=== PATIENT | male | born 1975 | race Caucasian/White ===

== ENCOUNTER 2023-03-06 14:07 | Inpatient (IN) | payer OTHER ==
[2023-03-06 14:43] VITALS: BMI 22.5
[2023-03-06] MEDS ORDERED: IBUPROFEN 400 MG TABLET (FP) PO PRN (17:52)
[2023-03-06] MEDS ORDERED: BISMUTH SUBSALICYLATE 524 MG/30 ML PO PRN (17:52)
[2023-03-06] MEDS ORDERED: cloNIDine HCL 0.1 MG TABLET PO PRN (17:52)
[2023-03-06] MEDS ORDERED: NALOXONE HCL 0.4 MG/ML VIAL IM PRN (17:52)
[2023-03-06] MEDS ORDERED: ACETAMINOPHEN 325 MG TABLET (FP) PO PRN (17:52)
[2023-03-06] MEDS ORDERED: guaiFENesin 600 MG TABLET.ER (FP) PO PRN (17:52)
[2023-03-06] MEDS ORDERED: IBUPROFEN 600 MG TABLET (FP) PO PRN (17:52)
[2023-03-06] MEDS ORDERED: NALOXONE HCL (KLOXXADO) 8 MG SPRAY NS PRN (17:52)
[2023-03-06] MEDS ORDERED: MAG HYDROX/AL HYDROX/SIMETH 30 ML UNIT-DOSE CUP PO PRN (17:52)
[2023-03-06] MEDS ORDERED: BENZONATATE 200 MG CAPSULE PO PRN (17:52)
[2023-03-06] MEDS ORDERED: DICYCLOMINE HCL 10 MG CAPSULE PO PRN (17:52)
[2023-03-06] MEDS ORDERED: NICOTINE POLACRILEX 2 MG GUM BUC PRN (17:52)
[2023-03-06] MEDS ORDERED: BENZOCAINE/MENTHOL (CHLORASEPTIC ) LOZENGE MM PRN (17:52)
[2023-03-06] MEDS ORDERED: MAGNESIUM HYDROX 2400MG/30ML ORAL SUSPENSION 30 ML CUP PO PRN (17:52)
[2023-03-06] MEDS ORDERED: POLYETHYLENE GLYCOL (HEALTHYLAX) 3350 17 GM PACKET PO PRN (17:52)
[2023-03-06] MEDS ORDERED: methaDONE HCL 10 MG TABLET (FOR DETOX USE ONLY) PO ONE (17:52)
[2023-03-06] MEDS ORDERED: P-EPHED 60MG/TRIPROLIDI 2.5MG TABLET PO PRN (18:10)
[2023-03-06] MEDS: METHOCARBAMOL 500 MG TABLET PO PRN (18:39)
[2023-03-06] MEDS: THIAMINE HCL 100 MG TABLET (FP) PO SCH (22:20)
[2023-03-06] MEDS: MELATONIN 5 MG TABLETS PO SCH (22:20)
[2023-03-07] MEDS: PRENATAL VITAMINS W/ FOLIC ACID TABLET (FP) PO SCH (10:06)
[2023-03-07] MEDS: METHOCARBAMOL 500 MG TABLET PO PRN ×2 (10:08→22:05)
[2023-03-07 11:11] LABS: HEMATOCRIT 42.8 % (35.4-49); HEMOGLOBIN 14.1 GM/dL (11.7-16.9); MCH 32.4 pg (25.7-33.7); MCHC 32.9 g/dl (32.0-35.9); MEAN CELL VOLUME 98.5 fl (80-96); MEAN PLT VOLUME 10.6 fl (7.5-11.1); PLATELET COUNT 158 10^3/uL (134-434); RBC 4.35 M/mm3 (4.00-5.60); RDW 13.3 % (11.9-15.9); WHITE BLOOD COUNT 6.9 K/mm3 (4.0-10.0)
[2023-03-07 11:16] LABS: POTASSIUM 4.4 mmol/L (3.5-5.1)
[2023-03-07 11:28] LABS: CALCIUM 8.3 mg/dL (8.5-10.1)
[2023-03-07 11:29] LABS: ALBUMIN 3.3 g/dl (3.4-5.0); BLOOD UREA NITROGEN 12.4 mg/dL (7-18)
[2023-03-07 11:32] LABS: CREATININE 0.9 mg/dL (0.55-1.3)
[2023-03-07 11:34] LABS: BILIRUBIN,TOTAL 0.7 mg/dL (0.2-1); TOT PROT 6.1 g/dl (6.4-8.2)
[2023-03-07] MEDS: BACITRACIN 0.9 GM PACKET TP SCH (14:46)
[2023-03-07] MEDS: THIAMINE HCL 100 MG TABLET (FP) PO SCH (22:05)
[2023-03-07] MEDS: MELATONIN 5 MG TABLETS PO SCH (22:05)
[2023-03-08] MEDS: BACITRACIN 0.9 GM PACKET TP SCH (09:52)
[2023-03-08] MEDS: PRENATAL VITAMINS W/ FOLIC ACID TABLET (FP) PO SCH (09:53)
[2023-03-08] MEDS ORDERED: methaDONE HCL 10 MG TABLET (FOR DETOX USE ONLY) PO ONE (10:00)
[2023-03-08] MEDS: CLINDAMYCIN HCL 150 MG CAPSULE (FP) PO SCH ×3 (10:45→22:32)
[2023-03-08] MEDS: THIAMINE HCL 100 MG TABLET (FP) PO SCH (22:32)
[2023-03-08] MEDS: MELATONIN 5 MG TABLETS PO SCH (22:33)
[2023-03-09] MEDS: CLINDAMYCIN HCL 150 MG CAPSULE (FP) PO SCH ×3 (06:07→22:08)
[2023-03-09] MEDS: BACITRACIN 0.9 GM PACKET TP SCH (10:17)
[2023-03-09] MEDS: PRENATAL VITAMINS W/ FOLIC ACID TABLET (FP) PO SCH (10:17)
[2023-03-09] MEDS: THIAMINE HCL 100 MG TABLET (FP) PO SCH (22:08)
[2023-03-09] MEDS: MELATONIN 5 MG TABLETS PO SCH (22:08)
[2023-03-10] MEDS: CLINDAMYCIN HCL 150 MG CAPSULE (FP) PO SCH ×3 (05:52→22:05)
[2023-03-10] MEDS ORDERED: methaDONE HCL 10 MG TABLET (FOR DETOX USE ONLY) PO ONE (10:00)
[2023-03-10] MEDS: PRENATAL VITAMINS W/ FOLIC ACID TABLET (FP) PO SCH (10:19)
[2023-03-10] MEDS: BACITRACIN 0.9 GM PACKET TP SCH (10:19)
[2023-03-10] MEDS: MELATONIN 5 MG TABLETS PO SCH (22:05)
[2023-03-10] MEDS: THIAMINE HCL 100 MG TABLET (FP) PO SCH (22:05)
[2023-03-11] MEDS: CLINDAMYCIN HCL 150 MG CAPSULE (FP) PO SCH (05:59)
[2023-03-11 09:05] VITALS: BP 126/83; PULSE 90; RESP 18; TEMP 97.3
[2023-03-11] MEDS: PRENATAL VITAMINS W/ FOLIC ACID TABLET (FP) PO SCH (09:47)
[2023-03-11] MEDS: BACITRACIN 0.9 GM PACKET TP SCH (09:48)
== END 2023-03-11 10:00 | disposition home or self-care (01) | DRG 773 ==
LOC: YASAS 14:07 → Y3N 18:05
PROVIDERS: ADMIT Allergy & Immunology; ATTEND Allergy & Immunology
PROC: HZ2ZZZZ Detoxification Services for Substance Abuse Treatment (ICD-10-PCS; principal; 2023-03-06)
DX: F11.23 Opioid dependence with withdrawal (principal); F14.20 Cocaine dependence, uncomplicated; F17.210 Nicotine dependence, cigarettes, uncomplicated; L02.211 Cutaneous abscess of abdominal wall; R74.8 Abnormal levels of other serum enzymes
CPT/HCPCS: 36415; 80053; 85027; 86780; 87635; 93005; 93010

== ENCOUNTER 2024-02-07 12:10 | Inpatient (IN) | payer OTHER ==
[2024-02-07 13:40] VITALS: BMI 25.3
[2024-02-07] MEDS ORDERED: BENZOCAINE/MENTHOL (CHLORASEPTIC ) LOZENGE MM PRN (14:02)
[2024-02-07] MEDS ORDERED: guaiFENesin 600 MG TABLET.ER (FP) PO PRN (14:02)
[2024-02-07] MEDS ORDERED: NALOXONE (NARCAN) HCL 4 MG/0.1 ML SPRAY NS PRN (14:02)
[2024-02-07] MEDS ORDERED: IBUPROFEN 400 MG TABLET (FP) PO PRN (14:02)
[2024-02-07] MEDS ORDERED: NICOTINE POLACRILEX 2 MG LOZENGE BC PRN (14:02)
[2024-02-07] MEDS ORDERED: LOPERAMIDE HCL 2 MG CAPSULE PO PRN (14:02)
[2024-02-07] MEDS ORDERED: POLYETHYLENE GLYCOL (HEALTHYLAX) 3350 17 GM PACKET PO PRN (14:02)
[2024-02-07] MEDS ORDERED: IBUPROFEN 600 MG TABLET (FP) PO PRN (14:02)
[2024-02-07] MEDS ORDERED: NALOXONE HCL 0.4 MG/ML VIAL IM PRN (14:02)
[2024-02-07] MEDS ORDERED: ACETAMINOPHEN 325 MG TABLET (FP) PO PRN (14:02)
[2024-02-07] MEDS ORDERED: DICYCLOMINE HCL 10 MG CAPSULE PO PRN (14:02)
[2024-02-07] MEDS ORDERED: BISMUTH SUBSALICYLATE 262 MG/15 ML BTL PO PRN (14:02)
[2024-02-07] MEDS ORDERED: BENZONATATE 200 MG CAPSULE PO PRN (14:02)
[2024-02-07] MEDS ORDERED: NICOTINE POLACRILEX 2 MG GUM BUC PRN (14:02)
[2024-02-07] MEDS ORDERED: MAGNESIUM HYDROX 2400MG/30ML ORAL SUSPENSION 30 ML CUP PO PRN (14:02)
[2024-02-07] MEDS ORDERED: P-EPHED 60MG/TRIPROLIDI 2.5MG TABLET PO PRN (14:02)
[2024-02-07] MEDS ORDERED: ONDANSETRON *ODT* 4 MG TABLET SL PRN (14:02)
[2024-02-07] MEDS: diazePAM 5 MG TABLET PO ONE ×2 (16:12→17:04)
[2024-02-07] MEDS ORDERED: diazePAM 5 MG TABLET ONE (17:02)
[2024-02-07] MEDS ORDERED: BUPRENORPHINE/NALOXONE 8 MG/2 MG FILM PACKET SL SCH (18:30)
[2024-02-07] MEDS: BUPRENORPHINE/NALOXONE 4 MG/1 MG FILM PACKET SL SCH (18:49)
[2024-02-07] MEDS: BUPRENORPHINE/NALOXONE 8 MG/2 MG FILM PACKET SL SCH (19:18)
[2024-02-07] MEDS: THIAMINE 100 MG TABLET PO SCH (22:35)
[2024-02-07] MEDS: METHOCARBAMOL 750 MG TAB PO PRN (22:36)
[2024-02-07] MEDS: MELATONIN 5 MG TABLETS PO SCH (22:36)
[2024-02-08] MEDS: MAG HYDROX/AL HYDROX/SIMETH 30 ML UNIT-DOSE CUP PO PRN (00:25)
[2024-02-08] MEDS: diphenhydrAMINE HCL 25 MG CAPSULE (FP) PO ONE (02:29)
[2024-02-08] MEDS: PRENATAL VITAMINS W/ FOLIC ACID TABLET (FP) PO SCH (09:52)
[2024-02-09] MEDS ORDERED: BUPRENORPHINE/NALOXONE 8 MG/2 MG FILM PACKET SL ONE (06:00)
[2024-02-09] MEDS ORDERED: BUPRENORPHINE/NALOXONE 8 MG/2 MG FILM PACKET SL SCH (06:00)
[2024-02-10 08:43] VITALS: BP 133/88; PULSE 78; RESP 18; TEMP 98.6
[2024-02-10] MEDS: BUPRENORPHINE/NALOXONE 8 MG/2 MG FILM PACKET SL SCH (10:20)
[2024-02-10 11:59] LABS: HEMATOCRIT 44.9 % (35.4-49); HEMOGLOBIN 15.4 GM/dL (11.7-16.9); MCH 32.5 pg (25.7-33.7); MCHC 34.2 g/dl (32.0-35.9); MEAN CELL VOLUME 95.2 fl (80-96); MEAN PLT VOLUME 9.9 fl (7.5-11.1); PLATELET COUNT 235 10^3/uL (134-434); RBC 4.72 M/mm3 (4.00-5.60); RDW 13.9 % (11.9-15.9); WHITE BLOOD COUNT 9.7 K/mm3 (4.0-10.0)
[2024-02-10 12:00] LABS: POTASSIUM 4.8 mmol/L (3.5-5.1)
[2024-02-10 12:10] LABS: CALCIUM 9.6 mg/dL (8.5-10.1)
[2024-02-10 12:11] LABS: ALBUMIN 4.3 g/dl (3.4-5.0); BLOOD UREA NITROGEN 14.2 mg/dL (7-18)
[2024-02-10 12:15] LABS: BILIRUBIN,TOTAL 0.8 mg/dL (0.2-1)
[2024-02-10 12:16] LABS: TOT PROT 7.8 g/dl (6.4-8.2)
== END 2024-02-10 11:35 | disposition other institution (70) | DRG 773 ==
LOC: YASAS 12:10 → Y6N 16:48
PROVIDERS: ADMIT Allergy & Immunology; ATTEND Surgery
PROC: HZ2ZZZZ Detoxification Services for Substance Abuse Treatment (ICD-10-PCS; principal; 2024-02-07)
DX: F11.23 Opioid dependence with withdrawal (principal); F12.20 Cannabis dependence, uncomplicated; F17.210 Nicotine dependence, cigarettes, uncomplicated
CPT/HCPCS: 36415; 80053; 80305; 80307; 85027; 86780; 93005; 93010

== ENCOUNTER 2025-01-25 13:04 | Inpatient (IN) | payer OTHER ==
[2025-01-25 13:38] VITALS: BMI 27.3
[2025-01-25] MEDS ORDERED: DICYCLOMINE HCL 10 MG CAPSULE PO PRN (14:26)
[2025-01-25] MEDS ORDERED: guaiFENesin 600 MG TABLET.ER (FP) PO PRN (14:26)
[2025-01-25] MEDS ORDERED: BENZOCAINE/MENTHOL (CHLORASEPTIC ) LOZENGE MM PRN (14:26)
[2025-01-25] MEDS ORDERED: LOPERAMIDE HCL 2 MG CAPSULE PO PRN (14:26)
[2025-01-25] MEDS ORDERED: NALOXONE (NARCAN) HCL 4 MG/0.1 ML SPRAY NS PRN (14:26)
[2025-01-25] MEDS ORDERED: hydrOXYzine PAMOATE 25 MG CAPSULE (FP) PO PRN (14:26)
[2025-01-25] MEDS ORDERED: BISMUTH SUBSALICYLATE 262 MG/15 ML BTL PO PRN (14:26)
[2025-01-25] MEDS ORDERED: ONDANSETRON *ODT* 4 MG TABLET SL PRN (14:26)
[2025-01-25] MEDS ORDERED: ACETAMINOPHEN 325 MG TABLET (FP) PO PRN (14:26)
[2025-01-25] MEDS ORDERED: IBUPROFEN 400 MG TABLET (FP) PO PRN (14:26)
[2025-01-25] MEDS ORDERED: MAGNESIUM HYDROX 2400MG/30ML ORAL SUSPENSION 30 ML CUP PO PRN (14:26)
[2025-01-25] MEDS ORDERED: POLYETHYLENE GLYCOL (HEALTHYLAX) 3350 17 GM PACKET PO PRN (14:26)
[2025-01-25] MEDS ORDERED: IBUPROFEN 600 MG TABLET (FP) PO PRN (14:26)
[2025-01-25] MEDS ORDERED: BENZONATATE 200 MG CAPSULE PO PRN (14:26)
[2025-01-25] MEDS ORDERED: METHOCARBAMOL 500 MG TABLET PO PRN (14:26)
[2025-01-25] MEDS: NICOTINE 14 MG/24 HOURS TOPICAL PATCH TD SCH (15:38)
[2025-01-25] MEDS: PRENATAL VITAMINS W/ FOLIC ACID TABLET (FP) PO SCH (15:38)
[2025-01-25] MEDS: valACYclovir HCL 500 MG TABLET (FP) PO SCH (23:02)
[2025-01-25] MEDS: THIAMINE 100 MG TABLET PO SCH (23:02)
[2025-01-25] MEDS: MELATONIN 5 MG TABLETS PO SCH (23:02)
[2025-01-25] MEDS: MUPIROCIN 2% TOPICAL OINTMENT 22 GM TUBE TP SCH (23:02)
[2025-01-25] MEDS: SULFAMETHOXAZOLE/TRIMETHOPRIM 800MG/160MG D.S. TABLET PO SCH (23:02)
[2025-01-26 10:52] LABS: MCHC 32.0 g/dl (32.3-36.5); MEAN CELL VOLUME 95.6 fl (79.0-92.2); MEAN PLT VOLUME 11.8 fl (9.4-12.4); RDW 12.9 % (12.1-15.9)
[2025-01-26 13:35] LABS: GLUCOSE,RANDOM 129 mg/dL (74-106)
[2025-01-26 13:36] LABS: CO2 25 mmol/L (21-32)
[2025-01-26 13:38] LABS: CREATININE 0.9 mg/dL (0.55-1.3); SGOT/AST 22 U/L (15-37); SGPT/ALT 25 U/L (13-61)
[2025-01-26 13:40] LABS: TOT PROT 7.1 g/dl (6.4-8.2)
[2025-01-26 13:42] LABS: ALK PHOS 85 U/L (45-117)
[2025-01-26] MEDS: MAG HYDROX/AL HYDROX/SIMETH 30 ML UNIT-DOSE CUP PO PRN (17:56)
[2025-01-26] MEDS: MELATONIN 5 MG TABLETS PO SCH (22:33)
[2025-01-27 12:20] VITALS: BP 100/73; PULSE 78; RESP 14; TEMP 97.5
== END 2025-01-27 11:40 | disposition home or self-care (01) | DRG 773 ==
LOC: YASAS 13:04 → Y3N 14:56
PROVIDERS: ADMIT Allergy & Immunology; ATTEND Allergy & Immunology
PROC: HZ2ZZZZ Detoxification Services for Substance Abuse Treatment (ICD-10-PCS; principal; 2025-01-25)
DX: F10.20 Alcohol dependence, uncomplicated (principal); F11.20 Opioid dependence, uncomplicated; F14.20 Cocaine dependence, uncomplicated; F12.20 Cannabis dependence, uncomplicated; F19.24 Other psychoactive substance dependence with psychoactive substance-induced mood disorder; Z59.00 Homelessness unspecified
CPT/HCPCS: 36415; 80053; 80305; 80307; 85027; 86780; 93005; 93010